=== PATIENT | female | born 1995 | race Caucasian/White ===

== ENCOUNTER 2020-06-22 20:25 | Emergency (ER) | payer OTHER ==
[2020-06-22] MEDS ORDERED: ACETAMINOPHEN 500 MG TABLET (FP) ONE (20:38)
[2020-06-22] MEDS ORDERED: ACETAMINOPHEN 500 MG TABLET (FP) PO ONE (20:39)
[2020-06-22] MEDS ORDERED: ACETAMINOPHEN 325 MG TABLET (FP) PO ONE (20:39)
[2020-06-22 20:40] VITALS: BMI 21.4
[2020-06-22] MEDS ORDERED: LORazepam 2 MG TABLET PO ONE (20:46)
[2020-06-22 21:08] LABS: BASO % 0.8 % (0-2.0); EOS % 0.3 % (0-4.5); HEMATOCRIT 40.3 % (32.4-45.2); HEMOGLOBIN 13.1 GM/dl (10.7-15.3); MCH 27.8 pg (25.7-33.7); MCHC 32.5 g/dl (32.0-36.0); MEAN CELL VOLUME 85.5 fl (80-96); MEAN PLT VOLUME 8.5 fl (7.5-11.1); MONO % 9.7 % (3.8-10.2); NEUT % 81.2 % (42.8-82.8); PLATELET COUNT 253 K/MM3 (134-434); RBC 4.71 M/mm3 (3.60-5.2); RDW 11.9 % (11.6-15.6); WHITE BLOOD COUNT 7.2 K/mm3 (4.0-10.8)
[2020-06-22 21:13] LABS: EPITHELIAL CELLS MANY /hpf
[2020-06-22 21:35] LABS: ALBUMIN 4.2 g/dl (3.4-5.0); BILIRUBIN,TOTAL 0.5 mg/dl (0.2-1); CALCIUM 9.2 mg/dl (8.5-10); CREATININE 0.7 mg/dl (0.55-1.3); POTASSIUM 3.9 mmol/L (3.5-5.1); TOT PROT 7.3 g/dl (6.4-8.2)
[2020-06-22] MEDS ORDERED: IBUPROFEN 600 MG TABLET (FP) PO ONE ×2 (21:38→21:47)
[2020-06-22 21:39] VITALS: BP 114/75; PULSE 102; TEMP 100.8
== END 2020-06-22 22:00 | disposition home or self-care (01) ==
LOC: FER 20:25
DX: B34.9 Viral infection, unspecified (principal)
CPT/HCPCS: 36415; 71046-TC-FY; 80053; 81003; 81015; 85025; 86707; 87040; 87350; 87804; 87880; 93005; 99285-25

== ENCOUNTER 2021-07-06 17:41 | Emergency (ER) | payer OTHER ==
[2021-07-06] MEDS ORDERED: CEPHALEXIN MONOHYDRATE 500 MG CAPSULE (UD) PO ONE (18:17)
[2021-07-06] MEDS ORDERED: CEPHALEXIN MONOHYDRATE 500 MG CAPSULE (UD) ONE (18:21)
[2021-07-06] MEDS ORDERED: ACETAMINOPHEN 325 MG TABLET (FP) PO ONE (18:24)
[2021-07-06 18:46] VITALS: BP 122/76; PULSE 76; TEMP 98.9; BMI 21.4
[2021-07-06] MEDS ORDERED: ACETAMINOPHEN 325 MG TABLET (FP) ONE (18:49)
[2021-07-06 21:44] LABS: EPITHELIAL CELLS FEW /hpf
== END 2021-07-06 18:52 | disposition home or self-care (01) ==
LOC: FER 17:41
DX: N12 Tubulo-interstitial nephritis, not specified as acute or chronic (principal)
CPT/HCPCS: 81003; 81015; 84703; 87086; 87186; 99283-25

== ENCOUNTER 2023-10-31 00:50 | Emergency (ER) | payer OTHER ==
[2023-10-31 01:09] VITALS: BP 124/86; PULSE 108; RESP 16; TEMP 97.6; BMI 21.4
[2023-10-31 03:00] LABS: BASO % 0.6 % (0-2.0); EOS % 0.3 % (0-4.5); HEMATOCRIT 31.2 % (32.4-45.2); HEMOGLOBIN 10.2 GM/dL (10.7-15.3); LYMPH % 7.8 % (8-40); MCHC 32.6 g/dl (32.0-36.0); MEAN CELL VOLUME 79.9 fl (80-96); MEAN PLT VOLUME 8.6 fl (7.5-11.1); MONO % 6.1 % (3.8-10.2); NEUT % 85.2 % (42.8-82.8); PLATELET COUNT 355 10^3/uL (134-434); WHITE BLOOD COUNT 10.6 K/mm3 (4.0-10.0)
== END 2023-10-31 02:27 | disposition home or self-care (01) ==
LOC: FER 00:50
DX: S92.325A Nondisplaced fracture of second metatarsal bone, left foot, initial encounter for closed fracture (principal); S92.334A Nondisplaced fracture of third metatarsal bone, right foot, initial encounter for closed fracture; W22.8XXA Striking against or struck by other objects, initial encounter
CPT/HCPCS: 36415; 73630-TC-RT-FY; 85025; 93005; 99285-25